=== PATIENT | male | born 1985 | race Caucasian/White ===

== ENCOUNTER 2018-09-09 12:35 | Outpatient (CLI) | payer BC ==
--- NOTE | 2018-09-09 13:21 | Diagnostic Imaging Report ---
CHEST X-RAY: AP view INDICATION: 2 views COMPARISON: Cough FINDINGS: The second frontal view is labeled correctly. There is no focal consolidation or pleural effusions The heart is normal in size. The osseous structures demonstrate no acute abnormalities. IMPRESSION: No focal acute pulmonary process.
== END 2018-09-09 13:30 | disposition home or self-care (01) ==
LOC: RAD 12:35 → LAB 12:35 → RAD 13:30
DX: M51.16 Intervertebral disc disorders with radiculopathy, lumbar region (principal); R05 Cough; R94.31 Abnormal electrocardiogram [ECG] [EKG]
CPT/HCPCS: 71046-TC; 93005